=== PATIENT | male | born 1980 | race Caucasian/White ===

== ENCOUNTER 2023-03-30 16:28 | Emergency (ER) | payer OTHER ==
[2023-03-30] MEDS ORDERED: Lidocaine 1% 5 ML VIAL INJECT ONE (16:43)
== END 2023-03-30 17:44 | disposition home or self-care (01) ==
LOC: JP.ED 16:28
DX: S01.81XA Laceration without foreign body of other part of head, initial encounter (principal); V28.99XA Unspecified rider of other motorcycle injured in noncollision transport accident in traffic accident, initial encounter; Y92.410 Unspecified street and highway as the place of occurrence of the external cause
CPT/HCPCS: 12011; 70486; 99283